=== PATIENT | male | born 1945 | race Caucasian/White ===

== ENCOUNTER 2020-01-13 10:32 | Day surgery (SDC) | payer MEDICARE, SELFPAY ==
--- NOTE | 2020-01-10 15:43 | PM.PREOP ---
Pre-operative Note Interval Note History & Physical reviewed/Exam performed by Physician: Yes Changes to H&P: No
--- NOTE | 2020-01-10 15:43 | PM.OP.1 ---
Operative Date/Time/Diagnoses Date of procedure: 01/13/20 Time of procedure: 11:45 Procedure & Clinicians Procedure: Preoperative diagnoses: 1. Left advanced nuclear sclerotic and cortical cataract through the visual axis. Postoperative diagnoses: 1. Cataract removed by phacoemulsification with placement of posterior chamber intraocular lens. 2. GERD 3. History of cardiac arrhythmia with premature ventricular contraction and chart history of ventricular by Smita which he denies. 4. History of prostate cancer but denies Flomax use. 5. Fisher's esophagus. 6. Hypothyroidism. 7. Hyperlipidemia. Procedure: Phacoemulsification with posterior chamber intraocular lens implant Surgeon: Marguerite Asif MD Complications: None Specimen: None Implant: ZCBOO+21.5 Blood loss: None Anesthesia: Retrobulbar with monitored standby Description of procedure: Patient presents with a complaint of decreased vision due to advanced cataract which is affecting activities of daily living. He is about to movement needs better vision in order to relocate as it is affecting his driving both day and night. He has delayed surgery due to the covidd 19 epidemic and is ready to proceed. He understands the extra risk of having surgery during this time. He has tested negative for the virus within 72 hours of surgery. He may require capsular dye for this procedure. The patient wants surgery to improve vision. The patient was taken to the operating room and given IV sedation. A retrobulbar block consisting of 6 cc of 2% xylocaine without epinephrine mixed half and half with 0.5% Marcaine with 1 cc of hyaluronidase added is placed between the medial and lateral 1/3 of the inferior orbital rim. The eye is manually massaged for 30 sec, prepped using Betadine solution, and draped in the usual sterile fashion. Temporal approach was made, a 1 mm side-port incision was made 90? from the proposed clear corneal incision position. Phenylephrine 1.5% mixed with 1% xylocaine 0.2 cc was placed into the anterior chamber. Viscoat followed by Paola was then placed. A 2.6 mm clear incision with a 2.6 mm blade was placed. A 360 degree capsulorrhexis style capsulotomy was then performed with a cystitome needle on a Healon. Hydrodelineation and hydrodissection were performed. The phacoemulsification unit is introduced, and sculpting notice used to groove the central lens. It is then removed in chopping mode. Epi nucleus is removed with epinuclear mode and irrigation aspiration was used to remove the peripheral cortex. The posterior capsule is polished. The intraocular lens is selected, inspected, power confirmed, and placed in the posterior chamber. The wound was stromally hydrated and tested for leaks, there was none and it was left sutureless. Vigamox 0.1 cc was placed into the anterior chamber. Kenalog 0.2 cc was placed in the superior subconjunctival space. A drop of antibiotic and was placed and the eye was patched and shielded. The patient was stable and returned to the recovery room in excellent condition. Dictated by: Marguerite Asif MD Copy to: [facility] Same procedure as scheduled: Yes
[2020-01-13] MEDS: PROPARACAINE 0.5% OPHTH SOL 2 DROPS EYE-OP (11:12)
[2020-01-13] MEDS: CATARACT EYE COMPOUND (10 DROPS/SYRINGE) 3 DROPS EYE-OP (11:13)
[2020-01-13 11:16] VITALS: BP 141/75; PULSE 64; RESP 14; TEMP 36.6; O2SAT 98; BMI 22.9
--- NOTE | 2020-01-13 12:12 | SUR.OPER ---
Supine on eye stretcher, head on extension cradle secured with tape. Arms tucked at sides with blanket. Pillow under knees.
[2020-01-13] MEDS: MOXIFLOXACIN INJ 5 MG/ML VIAL EYE-OP (12:17)
[2020-01-13] MEDS: LIDOCAINE 2% 4 ML, BUPIVACAINE 0.5% (PF) 4 ML, HYALURONIDASE 150 UNIT INJ (12:17)
[2020-01-13] MEDS: PHENYLEPHRINE/LIDOCAINE VIAL (OR) 0.2 ML EYE-OP (12:17)
[2020-01-13] MEDS: CHONDROIDTIN/SOD HYALURONATE 1.05 ML SYRINGE INTRAOCULA (12:18)
[2020-01-13] MEDS: HYALURONATE SODIUM 10 MG/ML SYRINGE INJ (12:19)
[2020-01-13] MEDS: ERYTHROMYCIN OPHTH 1 GM OINT 1 APPLIC EYE-LEFT (12:19)
[2020-01-13] MEDS: BALANCED SALT IRRIG SOLN NO.2 500 ML, EPINEPHrine 1 MG IRR (12:20)
[2020-01-13] MEDS: TRIAMCINOLONE 50 MG/5 ML VIAL INJ (12:20)
[2020-01-13 12:55] VITALS: BP 153/82; PULSE 62; RESP 16; TEMP 36.6; O2SAT 97
== END 2020-01-13 13:10 | disposition home or self-care (01) ==
LOC: OR 10:34
PROVIDERS: PCP Specialist; Referring Provider Ophthalmology; Visit Provider Ophthalmology
PROC: (CPT 66984; principal; 2020-01-13 11:45)
DX: H25.812 Combined forms of age-related cataract, left eye (principal); K21.9 Gastro-esophageal reflux disease without esophagitis; E03.9 Hypothyroidism, unspecified; E78.5 Hyperlipidemia, unspecified
CPT/HCPCS: 66984; J0171; J2250; J2704; J3301; J3470

== ENCOUNTER 2020-01-27 09:24 | Day surgery (SDC) | payer MEDICARE, SELFPAY ==
--- NOTE | 2020-01-24 11:29 | PM.PREOP ---
Pre-operative Note COVID-19 COVID-19 status: Negative Interval Note History & Physical reviewed/Exam performed by Physician: Yes Changes to H&P: No H&P completed within 30 days and has changed as indicated here:: Had no reactions to any medications used last surgery
--- NOTE | 2020-01-24 11:32 | P.OP_ITS ---
Operative Date/Time/Diagnoses Date of procedure: 01/27/20 Time of procedure: 10:45 Procedure & Clinicians Procedure: Preoperative diagnoses: 1. Right significant nuclear sclerotic and cortical cataract. 2. Desire for a multifocal IOL. 3. Fisher's esophagus. 4. History of cardiac arrhythmia currently stable Postoperative diagnoses: 1. Cataract removed by phacoemulsification with placement of a multifocal Panoptix IOL. posterior chamber intraocular lens. Procedure: Phacoemulsification with posterior chamber intraocular lens implant Surgeon: Marguerite Asif MD Complications: None Specimen: None Implant: TFATOO +22.0 Blood loss: None Anesthesia: Retrobulbar with monitored standby Description of procedure: Patient presents with a complaint of decreased vision due to cataract which is affecting activities of daily living. The patient wants surgery to improve vision. He chooses a trifocal Panoptix intraocular lens implant to improve his range of focus in this eye. He has already undergone successful left cataract surgery with a multifocal intraocular lens implant and does realize that this may limit his achieving glass free status. He understands the extra risk of proceeding with surgery during the COVID-19 epidemic and has tested not negative for the virus. He wishes to proceed with surgery The patient was taken to the operating room and given IV sedation. A retrobulbar block consisting of 6 cc of 2% xylocaine without epinephrine mixed half and half with 0.5% Marcaine with 1 cc of hyaluronidase added is placed between the medial and lateral 1/3 of the inferior orbital rim. The eye is manually massaged for 30 sec, prepped using Betadine solution, and draped in the usual sterile fashion. Temporal approach was made, a 1 mm side-port incision was made 90? from the proposed clear corneal incision position. Phenylephrine 1.5% mixed with 1% xylocaine 0.2 cc was placed into the anterior chamber. Viscoat followed by Paola was then placed. A 2.6 mm clear incision with a 2.6 mm blade was placed. A 360 degree capsulorrhexis style capsulotomy was then performed with a cystitome needle on a [employer]. Hydrodelineation and hydrodissection were performed. The phacoemulsification unit is introduced, and sculpting notice used to groove the central lens. It is then removed in chopping mode. Epi nucleus is removed with epinuclear mode and irrigation aspiration was used to remove the peripheral cortex. The posterior capsule is polished. The intraocular lens is selected, inspected, power confirmed, and placed in the posterior chamber. Extra care was taken to line up the Perkinje images with this multifocal implant. The wound was stromally hydrated and tested for leaks, there was none and it was left sutureless. Vigamox 0.1 cc was placed into the anterior chamber. Kenalog 0.2 cc was placed in the superior subconjunctival space. A drop of antibiotic and was placed and the eye was patched and shielded. The patient was stable and returned to the recovery room in excellent condition. Dictated by: Marguerite Asif MD Copy to: [facility] Same procedure as scheduled: Yes
[2020-01-27] MEDS: PROPARACAINE 0.5% OPHTH SOL 2 DROPS EYE-OP (09:41)
[2020-01-27] MEDS: CATARACT EYE COMPOUND (10 DROPS/SYRINGE) 3 DROPS EYE-OP (09:43)
[2020-01-27 09:54] VITALS: BP 148/79; PULSE 61; RESP 14; TEMP 36.8; O2SAT 98
[2020-01-27] MEDS: CHONDROIDTIN/SOD HYALURONATE 1.05 ML SYRINGE INTRAOCULA (11:02)
[2020-01-27] MEDS: ERYTHROMYCIN OPHTH 1 GM OINT 1 APPLIC EYE-RIGHT (11:03)
[2020-01-27] MEDS: HYALURONATE SODIUM 10 MG/ML SYRINGE INJ (11:03)
[2020-01-27] MEDS: MOXIFLOXACIN INJ 5 MG/ML VIAL EYE-OP (11:04)
[2020-01-27] MEDS: PHENYLEPHRINE/LIDOCAINE VIAL (OR) 0.2 ML EYE-OP (11:04)
[2020-01-27] MEDS: BALANCED SALT IRRIG SOLN NO.2 500 ML, EPINEPHrine 1 MG IRR (11:04)
[2020-01-27] MEDS: LIDOCAINE 2% 4 ML, BUPIVACAINE 0.5% (PF) 4 ML, HYALURONIDASE 150 UNIT INJ (11:05)
[2020-01-27] MEDS: TRIAMCINOLONE 50 MG/5 ML VIAL INJ (11:06)
[2020-01-27 11:27] VITALS: BP 124/74; PULSE 61; RESP 14; TEMP 36.5; O2SAT 98
[2020-01-27 11:28] VITALS: BP 124/74; PULSE 61; RESP 14; TEMP 36.5; O2SAT 98
== END 2020-01-27 11:46 | disposition home or self-care (01) ==
LOC: OR 09:26
PROVIDERS: PCP Specialist; Referring Provider Ophthalmology; Visit Provider Ophthalmology
PROC: (CPT 66984; principal; 2020-01-27 10:45)
DX: H25.811 Combined forms of age-related cataract, right eye (principal); E03.9 Hypothyroidism, unspecified; Z95.0 Presence of cardiac pacemaker
CPT/HCPCS: 66984; J0171; J2250; J2704; J3301; J3470